=== PATIENT | female | born 1960 | race Hispanic/Latino ===

== ENCOUNTER 2025-02-23 12:10 | Emergency (ER) | payer SELFPAY ==
[~2025-02-23] VITALS: Ht 152.4 cm; Wt 77.1 kg
[~2025-02-23 12:10] MED LIST: CEFDINIR300 MG PO; NAPROXEN250 MG PO
[2025-02-23 12:15] VITALS: PULSE 74; RESP 18; TEMP 97.8
[2025-02-23] MEDS ORDERED: KETOROLAC TROMETHAMINE 30 MG/ML VIAL ONE (13:20)
[2025-02-23] MEDS ORDERED: AMOX TR-K CLV1 EAC2 PO (13:23)
[2025-02-23] MEDS: ACETAMINOPHEN 325 MG TAB PO ONE (13:36)
[2025-02-23] MEDS: KETOROLAC TROMETHAMINE 30 MG/ML VIAL IM STA (13:36)
[2025-02-23 13:41] VITALS: BP 128/74; PULSE 71; RESP 18; TEMP 98.2; O2SAT 98
== END 2025-02-23 13:43 | disposition home or self-care (01) ==
LOC: ER 12:59
DX: K11.20 Sialoadenitis, unspecified (principal); I10 Essential (primary) hypertension; E11.9 Type 2 diabetes mellitus without complications; E78.5 Hyperlipidemia, unspecified; K21.9 Gastro-esophageal reflux disease without esophagitis
CPT/HCPCS: 99283; J1885